=== PATIENT | male | born 1970 | race Caucasian/White ===

== ENCOUNTER 2021-02-15 14:33 | Inpatient (IN) | payer OTHER ==
[~2021-02-15] VITALS: Ht 172.7 cm; Wt 92.1 kg
[2021-02-15 16:13] LABS: BASOPHIL 0.5 % (0-2); EOSINOPHIL 1.2 % (0-5); HCT 47.4 % (42.0-52.0); HGB 15.7 g/dl (13.2-18.0); LYMPHOCYTE 9.1 % (15-48); MCH 31.5 pg (25.0-31.0); MCHC 33.1 g/dL (32.0-36.0); MPV 9.4 fL (6.0-9.5); NEUTROPHIL 81.2 % (41-80); NRBC 0; PLT 148 K/uL (150-400); RBC 4.99 M/uL (4.70-6.00); RDW 14.5 % (11.5-14.0); WBC 7.7 K/uL (4.0-10.5)
[2021-02-15 16:18] LABS: INR 1.12 (0.9-1.2); PROTHROMBIN TIME 13.8 SECONDS (11.8-13.4)
[2021-02-15 16:19] LABS: D-DIMER 0.81 ug/mLFEU (0.00-0.41)
[2021-02-15 16:36] LABS: PRO-BNP 61 pg/mL (<125)
[2021-02-15 16:40] LABS: LACTIC ACID 1.8 mmol/L (0.4-1.9)
[2021-02-15 17:19] LABS: CREATININE 0.77 mg/dL (0.67-1.17); POTASSIUM 5.2 mmol/L (3.5-5.1)
[2021-02-15 17:22] LABS: BILIRUBIN - TOTAL 1.8 mg/dL (0.2-1.0); TOTAL PROTEIN 6.5 g/dL (6.4-8.2)
[2021-02-15 17:33] LABS: ALBUMIN 3.1 g/dL (3.4-5.0); GLOBULIN (CALCULATION) 3.4 g/dL
[2021-02-15] MEDS ORDERED: MEDROL 4MG DOSEP4 MG PO (19:36)
[2021-02-15] MEDS ORDERED: ASPIRIN EC81 MG PO (19:37)
[2021-02-15] MEDS ORDERED: ZINC50 M3 PO (19:37)
[2021-02-15] MEDS ORDERED: VIBRAMYCIN100 MG PO (19:38)
[2021-02-15] MEDS ORDERED: ASCORBIC ACID500 MG PO (19:39)
[2021-02-15] MEDS ORDERED: GUAIFENESIN400 MG PO (19:39)
[2021-02-15] MEDS ORDERED: PROTONIX 40MG T40 MG PO (19:40)
[2021-02-15] MEDS ORDERED: IBUPROFEN800 MG PO (19:40)
[2021-02-15] MEDS ORDERED: SEROQUEL 25MG T25 MG PO (19:41)
[2021-02-15] MEDS ORDERED: ROBAXIN750 MG PO (19:41)
[2021-02-15] MEDS ORDERED: ACETAMINOPHEN500 M1 PO (19:42)
[2021-02-15] MEDS ORDERED: [UNRECOGNIZED DRUG - OTHER] OP (19:42)
[2021-02-15] MEDS ORDERED: VENTOLIN (2.5 MG/3 M INH (19:43)
[2021-02-15] MEDS ORDERED: VISTARIL50 MG PO (19:43)
[2021-02-15] MEDS ORDERED: TESSALON PERLE100 MG PO (19:44)
[2021-02-15] MEDS ORDERED: LUBRIDERM TOP (19:45)
[2021-02-15 19:46] LABS: LDH 384 U/L (85-227)
[2021-02-16 07:20] LABS: BASOPHIL 0.3 % (0-2); EOSINOPHIL 0 % (0-5); HCT 46.6 % (42.0-52.0); HGB 15.4 g/dl (13.2-18.0); LYMPHOCYTE 7.5 % (15-48); MCH 30.9 pg (25.0-31.0); MCV 93.6 fL (78.0-100.0); MONOCYTE 1.8 % (0-12); MPV 9.6 fL (6.0-9.5); NEUTROPHIL 88.3 % (41-80); NRBC 0; PLT 159 K/uL (150-400); RBC 4.98 M/uL (4.70-6.00); WBC 7.8 K/uL (4.0-10.5)
[2021-02-16 08:33] LABS: ALBUMIN 2.8 g/dL (3.4-5.0); BILIRUBIN - TOTAL 0.6 mg/dL (0.2-1.0); CREATININE 0.46 mg/dL (0.67-1.17); GLOBULIN (CALCULATION) 4.2 g/dL; POTASSIUM 4.3 mmol/L (3.5-5.1)
--- NOTE | 2021-02-16 16:49 | NUR ---
02/16/21 Mr. Thao was admitted from [facility] in [place]. Walt Orozco, , Intake Director, is verifying that patient may return using .
[2021-02-17 05:07] LABS: HBSAG SCREEN Negative (Negative); HEP A AB, IGM Negative (Negative); HEP B CORE AB, IGM Negative (Negative); HEP C VIRUS AB >11.0 (0.0-0.9)
[2021-02-17 06:11] LABS: BASOPHIL 0.2 % (0-2); EOSINOPHIL 0 % (0-5); HCT 42.7 % (42.0-52.0); HGB 14.1 g/dl (13.2-18.0); LYMPHOCYTE 5.8 % (15-48); MCH 31.5 pg (25.0-31.0); MCV 95.3 fL (78.0-100.0); MONOCYTE 3.7 % (0-12); MPV 9.8 fL (6.0-9.5); NEUTROPHIL 89.3 % (41-80); NRBC 0; PLT 154 K/uL (150-400); RBC 4.48 M/uL (4.70-6.00); RDW 13.8 % (11.5-14.0)
[2021-02-17 06:16] LABS: WBC 18.9 K/uL (4.0-10.5)
[2021-02-17 06:43] LABS: ALBUMIN 2.5 g/dL (3.4-5.0); BILIRUBIN - TOTAL 0.3 mg/dL (0.2-1.0); BUN/CREAT RATIO (CALC) 27.6 RATIO; CREATININE 0.58 mg/dL (0.67-1.17); GLOBULIN (CALCULATION) 3.8 g/dL; POTASSIUM 4.5 mmol/L (3.5-5.1); TOTAL PROTEIN 6.3 g/dL (6.4-8.2)
--- NOTE | 2021-02-18 09:31 | NUR ---
0850 DR EDGAR NOTIFED THAT THE PATIENT IS STRUGGLING TO BREATHE AND IS ON 100% NONBREATHER. LUNGS WHERE TIGHT AND DIMINISHED ALL BASES. "REPORTS i AM HAVEING A LOT OF TROUBLE BREATHING THIS MORNING." FACE IS FLUSHED DENIES ANY PAIN AT THIS TIME. 0900 NEW ORDERS TO TRANSFER THE PATIENT TO ICU 3 16 REPORT WAS GIVEN TO MILTON ALEMAN RN IN ICU.
--- NOTE | 2021-02-18 14:27 | NUR ---
1124 [facility] CALLED BACK TO [facility]. NOTIFED THEM THAT THE PATIENT HAD BEEN TRANSFERRED TO ICU AND WAS PLACED ON THE VENT. WAS NEEDING PHOME NUMBERS TO FAMILY AND NEXT OF KIN TO NOTIFY THEM OF THE TRANSFER. FAMILY MENBERS NUMBERS WHERE GIVEN KINJAL PHELPS (DAUGHTER) and YARELIS HARP (GRANDDAUGHTER) [phone]. 1127 NOTIFIED THE DAUGHTER AND WAS UNABLE TO LEAVE A MESSAGE DUE TO MAILBOX WAS FULL. 1136 DAUGHTER KINJAL PHELPS RETURNED THE CALL AND WAS INFORMED THAT THE PATIENT HAD BEEN TRANSFERED TO ICU AND WAS PLACED ON THE VENT. ANSWERED ALL HER QUESTIONS AND WAS GIVEN THE NUMBER TO ICU TO CALL TO CHECK ON THE PATIENT. SHE WAS VERY THANKFUL.
--- NOTE | 2021-02-18 18:33 | NUR ---
0950 PT MVOED FROM MED SURG TO ICU UNIT 0955 5MG VERSED IVP 0956 120MG SUCC IVP 0957 26MG ETOMADATE INTUBATED AT 1000 7.5 ET TUBE 27 AT LIP 1007 DIPRIVAN STARTED AT 10MCG/6.2ML PT EXTREMELY AGGITATED STACKING BREATHS ON VENT, GAG REFLEX ACTIVE 1013 FENTANYL 50MCG/1ML IVP 1015 DIPRIVAN INCREASED 20MCG/12.5 PT ACTIVILY TRYING TO SIT UP IN BED FORCEFULLY, STILL GAGING FROM ET TUBE 1025 DIPRIVAN INCREASED 40MCG/25ML BEGINNING TO RELAX STILL AGGITATED STILL TRYING TO SIT UP IN BED 1040 DIPRIVAN INCREASED TO 50MCG/31.2ML STILL GAGGING AT ET TUBE, WITH SLIGHT AGGITATION FENTANYL DRIP STARTED AT 100MCG/10ML 1100 FENTANYL INCREASED TO 200MCG/20ML 1130 FENTANYL INCREASED TO 300MCG/30ML PT BEGAN TO GET HYPOTENSIVE DR TALA WAS CALLED AND VERSED WAS ORDERED AND ORDERED FOR DIPRIVAN TO BE TITRATED DOWN 1140 VERSED 2MG/ML PT SATURATION 93%-94% VEC STARTED AT THIS TIME AT 0.8MCG/KG/MIN-49.9ML DIPRIVAN DECREASED TO 45MCG/28.1ML 1155 DIPRIVAN DECREASED TO 40MCG/25ML 1230 DIPRIVAN DECREASED TO 35MCG/21.8ML VERSED INCREASED 3MG/3ML 1245 VERSED INCREASED TO 5MG/5ML 1300 VERSED INCREASED TO 7MG/7ML 1320 VERSED INCREASED TO 10MG DIPRIVAN STOPPED BIZ MONITORING INCREASED TO 65-70 DIPRIVAN STARTED AT 20MCG/12.5ML 1430 DIPRIVAN DECREASED 10MCG/6.2ML 1530 DIPRIVAN DECREASED 5MCG/3.1ML 1600 PT BEGAN TO GET SLIGHTLY HYPERTENSIVE 130'S-140'S SYSTOLIC DIPRIVAN INCREASED BACK TO 20MCG/12.5ML VERSED DECREASED 8MG/8ML
[2021-02-19 03:51] LABS: BASOPHIL 0.2 % (0-2); EOSINOPHIL 0 % (0-5); HCT 41.7 % (42.0-52.0); HGB 13.2 g/dl (13.2-18.0); MCH 31.1 pg (25.0-31.0); MCHC 31.7 g/dL (32.0-36.0); MCV 98.1 fL (78.0-100.0); MONOCYTE 2.8 % (0-12); MPV 9.5 fL (6.0-9.5); NEUTROPHIL 82.8 % (41-80); NRBC 0; PLT 168 K/uL (150-400); RBC 4.25 M/uL (4.70-6.00); WBC 9.5 K/uL (4.0-10.5)
[2021-02-19 03:56] LABS: LYMPHOCYTE 12.8 % (15-48)
[2021-02-19 04:54] LABS: ALBUMIN 2.6 g/dL (3.4-5.0); BILIRUBIN - TOTAL 0.3 mg/dL (0.2-1.0); BUN/CREAT RATIO (CALC) 31.6 RATIO; CREATININE 0.57 mg/dL (0.67-1.17); GLOBULIN (CALCULATION) 3.3 g/dL; MAGNESIUM 2.3 mg/dL (1.8-2.4); PHOSPHORUS 3.9 mg/dL (2.6-4.7); POTASSIUM 4.5 mmol/L (3.5-5.1); TOTAL PROTEIN 5.9 g/dL (6.4-8.2)
[2021-02-20 10:04] LABS: BASOPHIL 0.2 % (0-2); EOSINOPHIL 0 % (0-5); HCT 41.7 % (42.0-52.0); HGB 13.1 g/dl (13.2-18.0); LYMPHOCYTE 7.6 % (15-48); MCH 31.3 pg (25.0-31.0); MCHC 31.4 g/dL (32.0-36.0); MCV 99.8 fL (78.0-100.0); MONOCYTE 4.8 % (0-12); MPV 9.8 fL (6.0-9.5); NEUTROPHIL 86.4 % (41-80); NRBC 0; PLT 169 K/uL (150-400); RBC 4.18 M/uL (4.70-6.00); RDW 14.1 % (11.5-14.0); WBC 15.5 K/uL (4.0-10.5)
[2021-02-20 10:22] LABS: ALBUMIN 2.5 g/dL (3.4-5.0); BILIRUBIN - TOTAL 0.3 mg/dL (0.2-1.0); BUN/CREAT RATIO (CALC) 52.4 RATIO; CREATININE 0.63 mg/dL (0.67-1.17); GLOBULIN (CALCULATION) 3.2 g/dL; POTASSIUM 4.8 mmol/L (3.5-5.1); TOTAL PROTEIN 5.7 g/dL (6.4-8.2)
[2021-02-21 05:32] LABS: BASOPHIL 0.1 % (0-2); EOSINOPHIL 0 % (0-5); HCT 39.5 % (42.0-52.0); HGB 12.4 g/dl (13.2-18.0); LYMPHOCYTE 5.4 % (15-48); MCH 30.5 pg (25.0-31.0); MCHC 31.4 g/dL (32.0-36.0); MCV 97.1 fL (78.0-100.0); MONOCYTE 3.7 % (0-12); MPV 9.5 fL (6.0-9.5); NRBC 0; PLT 159 K/uL (150-400); RBC 4.07 M/uL (4.70-6.00); RDW 13.9 % (11.5-14.0); WBC 11.9 K/uL (4.0-10.5)
[2021-02-21 05:47] LABS: BUN/CREAT RATIO (CALC) 54.2 RATIO; CREATININE 0.48 mg/dL (0.67-1.17); POTASSIUM 4.3 mmol/L (3.5-5.1)
[2021-02-22 04:24] LABS: BASOPHIL 0.2 % (0-2); EOSINOPHIL 0 % (0-5); HCT 42.8 % (42.0-52.0); HGB 13.9 g/dl (13.2-18.0); LYMPHOCYTE 5.4 % (15-48); MCH 30.9 pg (25.0-31.0); MCHC 32.5 g/dL (32.0-36.0); MCV 95.1 fL (78.0-100.0); MONOCYTE 4.2 % (0-12); MPV 9.7 fL (6.0-9.5); NEUTROPHIL 89.2 % (41-80); NRBC 0; PLT 172 K/uL (150-400); RDW 13.2 % (11.5-14.0); WBC 12.7 K/uL (4.0-10.5)
[2021-02-22 04:41] LABS: ALBUMIN 2.6 g/dL (3.4-5.0); BILIRUBIN - TOTAL 0.9 mg/dL (0.2-1.0); BUN/CREAT RATIO (CALC) 50.9 RATIO; CREATININE 0.55 mg/dL (0.67-1.17); GLOBULIN (CALCULATION) 3.7 g/dL; MAGNESIUM 2.2 mg/dL (1.8-2.4); PHOSPHORUS 3.5 mg/dL (2.6-4.7); POTASSIUM 4.4 mmol/L (3.5-5.1); TOTAL PROTEIN 6.3 g/dL (6.4-8.2)
[2021-02-23 04:25] LABS: BASOPHIL 0.2 % (0-2); EOSINOPHIL 0.2 % (0-5); HCT 43.9 % (42.0-52.0); HGB 14.5 g/dl (13.2-18.0); LYMPHOCYTE 12.9 % (15-48); MCH 30.7 pg (25.0-31.0); MCV 92.8 fL (78.0-100.0); MONOCYTE 5.5 % (0-12); MPV 9.3 fL (6.0-9.5); NEUTROPHIL 80.2 % (41-80); NRBC 0; PLT 176 K/uL (150-400); RBC 4.73 M/uL (4.70-6.00); RDW 13.1 % (11.5-14.0); WBC 11.4 K/uL (4.0-10.5)
[2021-02-23 04:50] LABS: ALBUMIN 2.7 g/dL (3.4-5.0); BILIRUBIN - TOTAL 0.9 mg/dL (0.2-1.0); BUN/CREAT RATIO (CALC) 49.1 RATIO; CREATININE 0.55 mg/dL (0.67-1.17); GLOBULIN (CALCULATION) 3.6 g/dL; POTASSIUM 4.4 mmol/L (3.5-5.1); TOTAL PROTEIN 6.3 g/dL (6.4-8.2)
[2021-02-24 05:46] LABS: BASOPHIL 0.2 % (0-2); EOSINOPHIL 0.3 % (0-5); HCT 46.8 % (42.0-52.0); HGB 15.7 g/dl (13.2-18.0); LYMPHOCYTE 9.7 % (15-48); MCH 31.3 pg (25.0-31.0); MCHC 33.5 g/dL (32.0-36.0); MCV 93.4 fL (78.0-100.0); MONOCYTE 4.5 % (0-12); MPV 9.8 fL (6.0-9.5); NEUTROPHIL 84.4 % (41-80); NRBC 0; PLT 202 K/uL (150-400); RBC 5.01 M/uL (4.70-6.00); RDW 13.3 % (11.5-14.0)
[2021-02-24 06:21] LABS: ALBUMIN 2.9 g/dL (3.4-5.0); BILIRUBIN - TOTAL 0.8 mg/dL (0.2-1.0); BUN/CREAT RATIO (CALC) 52.7 RATIO; CREATININE 0.55 mg/dL (0.67-1.17); GLOBULIN (CALCULATION) 3.8 g/dL; POTASSIUM 3.8 mmol/L (3.5-5.1); TOTAL PROTEIN 6.7 g/dL (6.4-8.2)
--- NOTE | 2021-02-25 13:44 | NUR ---
02/25/21 Mr. Thao reports plans to go to the home of his cousin, [place] B[place], at [address] [place] [address]. His daughter, Elizabeth, , reports to be driving from [place] ([address]) to transport Mr. Thao to [place] when he is ready for discharge. - [facility] has delivered enough 02 for 7 hours. IF PT IS DCed, please call [employer] on-call at [phone]. Their [place] Office will arrange for the concentrator to be delivered to the home of [place] Bland. - Please make sure the concentrator is delivered before discharging the patient.
[2021-02-26 06:44] LABS: BASOPHIL 0.3 % (0-2); EOSINOPHIL 0.4 % (0-5); HCT 50.4 % (42.0-52.0); HGB 16.7 g/dl (13.2-18.0); LYMPHOCYTE 10.4 % (15-48); MCHC 33.1 g/dL (32.0-36.0); MCV 93.5 fL (78.0-100.0); MONOCYTE 4.5 % (0-12); MPV 9.8 fL (6.0-9.5); NEUTROPHIL 82.6 % (41-80); NRBC 0; PLT 238 K/uL (150-400); RBC 5.39 M/uL (4.70-6.00); RDW 13.3 % (11.5-14.0); WBC 22.2 K/uL (4.0-10.5)
[2021-02-26 06:48] LABS: ALBUMIN 3.2 g/dL (3.4-5.0); BUN/CREAT RATIO (CALC) 41.7 RATIO; CREATININE 0.6 mg/dL (0.67-1.17); POTASSIUM 4.1 mmol/L (3.5-5.1); TOTAL PROTEIN 7.2 g/dL (6.4-8.2)
[2021-02-26] MEDS ORDERED: MELATONIN5 M2 PO (09:47)
[2021-02-26] MEDS ORDERED: ATROVENT HFA12.9 GM INH (09:47)
[2021-02-26] MEDS ORDERED: NYSTATIN SUSP1 ML/ML SSW (09:47)
[2021-02-26] MEDS ORDERED: PROVENTIL HFA6.7 GM INH (09:47)
--- NOTE | 2021-02-26 13:06 | NUR ---
THROUGHTOUT THIS SHIFT, PT HAS REPEATEDLY VERBALIZED DESIRE TO "JUST WALK OUT" AND HAS MADE SEVERAL REQUESTS TO BE ALLOWED TO GO TO PARKING LOT TO SMOKE. PT HAS BEEN EDUCATED BY THIS RN ON THE SMOKE FREE STATUS OF THIS CAMPUS WELL THE DANGERS TO HIMSELF AND OTHERS SHOULD HE SMOKE WHILE USING OXYGEN. THIS RN HAS ALSO DISCUSSED PT'S OXYGEN STATUS WITH HIM AT LENGTH, INCLUDING HIS HIGH NEED FOR SUPPLEMENTAL 02 AND THE RISKS OF BEING OFF HIS 02 FOR PROLONGED PERIODS. PT VERBALIZED UNDERSTANDINGS OF THESE RISKS. PT DC IS COMPLETED AND WE ARE AWAITING THE ARRIVAL OF HIS AND DAUGHTER - DAUGHTER STATES THEY WILL ARRIVE AT [facility] 3:45PM. PT STATES HE "CANNOT AND WILL NOT" WAIT THAT LONG AND STATES HE "WANTS HIS PAPERS" AND "YOU CAN'T STOP ME FROM WALKING OUT." THIS RN S/W DR PEÑA AND HIREN KUMAR, RN VISITING RE PATIENT DEMANDS. WILL REINFORCE TO PATIENT THAT IT IS SAFEST FOR HIM TO REMAIN ON THE UNIT UNTIL HIS RIDE ARRIVES - HOWEVER, IT IS HIS DECISION IF HE CHOOSES TO WAIT OUTSIDE WITH HIS 02 FOR THEM TO ARRIVE.
--- NOTE | 2021-02-28 12:30 | NUR ---
02/28/21 Care Coordination, Kaveh Mckeon, reports that family picked up Mr. Thao on 02/26/21. Nursing called [employer] on-call # for delivery to the address provided to this public health social worker by his daughter, Elizabeth. Ms. Mckeon reported the daughter to have requested for the 02 to be delivered to Mr. Olivia's brother's home. He was informed that arrangedments would be made for delivery to his counsin's home, [place], as agreed upon. Note: the brother said Mr. Thao could not come to his house. - Venecia Villaseñor at [facility] was informed of patient's discharge.
== END 2021-02-26 13:39 | disposition home or self-care (01) | DRG 208 ==
LOC: FER 14:33 → FMS 17:37 → FICU 02-18 09:10 → FTCU 02-23 08:14 → FMS 02-24 17:49
PROVIDERS: Emergency Medicine; Internal Medicine; Nurse Practitioner; ADMIT Family Medicine
PROC: 8E0ZXY6 Isolation (ICD-10-PCS; principal; 2021-02-15)
PROC: XW033E5 Introduction of Remdesivir Anti-infective into Peripheral Vein, Percutaneous Approach, New Technology Group 5 (ICD-10-PCS; 2021-02-15)
PROC: XW0DXM6 Introduction of Baricitinib into Mouth and Pharynx, External Approach, New Technology Group 6 (ICD-10-PCS; 2021-02-16)
PROC: 5A1945Z Respiratory Ventilation, 24-96 Consecutive Hours (ICD-10-PCS; 2021-02-18)
PROC: 3E033XZ Introduction of Vasopressor into Peripheral Vein, Percutaneous Approach (ICD-10-PCS; 2021-02-18)
PROC: 0BH17EZ Insertion of Endotracheal Airway into Trachea, Via Natural or Artificial Opening (ICD-10-PCS; 2021-02-18)
PROC: 03HY32Z Insertion of Monitoring Device into Upper Artery, Percutaneous Approach (ICD-10-PCS; 2021-02-19)
DX: U07.1 COVID-19 (principal); J12.82 Pneumonia due to coronavirus disease 2019; J96.01 Acute respiratory failure with hypoxia; J15.9 Unspecified bacterial pneumonia; B37.0 Candidal stomatitis; R73.03 Prediabetes; T38.0X5A Adverse effect of glucocorticoids and synthetic analogues, initial encounter; K59.03 Drug induced constipation; T40.415A Adverse effect of fentanyl or fentanyl analogs, initial encounter; F20.9 Schizophrenia, unspecified; F41.9 Anxiety disorder, unspecified; F15.11 Other stimulant abuse, in remission; F31.9 Bipolar disorder, unspecified; B18.2 Chronic viral hepatitis C; Z86.711 Personal history of pulmonary embolism; Z79.899 Other long term (current) drug therapy; Z98.890 Other specified postprocedural states
CPT/HCPCS: 36415; 36600; 71045; 71275; 80048; 80053; 80074; 82607; 82728; 82803; 83036; 83605; 83615; 83735; 83880; 84100; 84145; 84484; 85025; 85379; 85610; 85730; 86803; 87070; 87205; 93005; 94002; 94010; 94640; 94664; 94667; 94668; 94760; 94762; 97162; 97166; 97530; 97530-GP; 97535; C9113; C9399; J0330; J0456; J0696; J1100; J1650; J2250; J2704; J3010; J7030; J7050; J8540; Q9967; U0002